=== PATIENT | male | born 1980 | race Hispanic/Latino ===

== ENCOUNTER 2021-09-18 15:51 | Emergency (ER) | payer OTHER, SELFPAY ==
--- NOTE | 2021-09-18 15:56 | ED.WOUNDLAC ---
HPI - Wound/Laceration General Chief Complaint: Wound/Laceration Stated Complaint: cut left 2nd finger Time Seen by Provider: 09/18/21 15:57 Source: patient and RN notes reviewed Mode of arrival: ambulatory Limitations: no limitations History of Present Illness HPI narrative: 41-year-old male presents to the [facility] with a laceration to the second finger left hand. 2 cm laceration tip with 2nd finger left hand. Bleeding controlled, unknown last Tdap Related Data Allergies Allergy/AdvReac Type Severity Reaction Status Date / Time No Known Allergies Allergy Unknown Verified 09/25/06 11:50 Review of Systems Review of Systems: All systems reviewed & are unremarkable except as noted in HPI and below Constitutional: Constitutional: Reports no additional constitutional complaints, Denies chills and Denies fever(s) Eyes: Eyes: Reports no additional eye complaints ENT: Reports system reviewed and no additional complaints, except as documented Cardiovascular: Cardiovascular: Reports no additional cardiovascular complaints Respiratory: Respiratory: Reports no additional respiratory complaints Gastrointestinal: Gastrointestinal: Reports no additional gastrointestinal complaints Musculoskeletal: Musculoskeletal: Reports no additional musculoskeletal complaints Integumentary/Breasts: Skin/Breast: Reports as per HPI Comments: Laceration, tip second left finger Neurologic: Reports system reviewed and no additional complaints, except as documented Psychiatric: Psychiatric: Reports no additional psychiatric complaints Allergic/Immunologic: Allergic/Immunologic: Reports no additional allergic/immunologic complaints PMFSH Past Medical History Medical History No significant medical problems Surgical History Surgical History (Updated 09/19/21 @ 20:15 by Annette Pavon) No significant past surgical history Comments At the time of my signature, I reviewed and agree with the nursing past medical, surgical, social, and family history. There is no relevant family history pertinent to the patient complaint. Exam Const: General: healthy appearing, no acute distress and alert Nutritional Appearance: well nourished Orientation/consciousness: patient oriented x3 Limitations: no limitations HENMT: Head: normal to inspection Eyes: Conjunctivae: conjunctivae normal Pupils: Equal, round and reactive pupils present Neck: Neck: normal visual inspection Chest: Chest palpation & inspection: normal inspection of the chest Resp: Effort & Inspection: normal respiratory effort Auscultation: clear to auscultation bilaterally Cardio: Rate: regular rate Rhythm: regular rhythm Back/Spine/Pelvis: Back: no CVA tenderness Skin: General skin exam: normal color Wounds: wounds noted left size (2 cm) Other: Laceration Neuro: General: patient oriented x3, moves all extremities, no meningeal signs and no focal motor deficits Speech: normal speech Gait exam (Neuro): Normal gait present Extrem: General: normal to inspection Psych: Appearance: grossly normal and well kempt Mental Status: mental status grossly normal Affect: normal affect Attitude: cooperative Thought content: Yes Normal thought content present Course Course Emergency Course: Discharge instructions reviewed with patient, as well as provided in writing per nursing staff. The instructions also include specific and strict return/GO TO THE ER as well as f/u information. All questions have been answered, and the patient deny any further questions with discharge and discharge plan. Vital Signs Vital signs: Vital Signs Temperature 98.4 F 09/18/21 16:00 Pulse Rate 98 09/18/21 16:00 Respiratory Rate 16 09/18/21 16:00 Blood Pressure 138/93 H 09/18/21 16:00 Pulse Oximetry 98 09/18/21 16:00 Temperature 98.4 F 09/18/21 16:00 Pulse Rate 98 09/18/21 16:00 Respiratory Rate 16 09/18/21 16:00 Blood
[2021-09-18 16:00] VITALS: BP 138/93; PULSE 98; RESP 16; TEMP 36.9; O2SAT 98
[2021-09-18] MEDS: TETANUS,DIPHTHERIA,AC PERTUSSIS ADULT (0.5 ML) BOOSTRIX IM (16:08)
== END 2021-09-18 16:30 | disposition home or self-care (01) ==
PROVIDERS: Emergency Provider Nurse Practitioner
DX: S61.211A Laceration without foreign body of left index finger without damage to nail, initial encounter (principal); X58.XXXA Exposure to other specified factors, initial encounter; Z23 Encounter for immunization
CPT/HCPCS: 12001; 90471; 90715; 99212; G0463

== ENCOUNTER 2024-03-12 14:59 | Emergency (ER) | payer OTHER, SELFPAY ==
[2024-03-12] VITALS (12 sets, daily range): BP systolic 137–161; BP diastolic 71–91; PULSE 96–111; RESP 16–31; TEMP 38.3; O2SAT 94–98
--- NOTE | ~2024-03-12 | CT_ITS ---
EXAMINATION: CT abdomen pelvis w con DATE: 03/12/2024 17:20 INDICATION: Right lower quadrant abdominal pain. TECHNIQUE: Computed tomography (CT) of the abdomen and pelvis was performed with 100 mL Omnipaque 350 intravenous contrast. Automated exposure control and iterative reconstruction technique were employe d. The dose-length product was 991.35 mGy-cm. COMPARISON: CT abdomen and pelvis 06/07/19 FINDINGS: The visualized portions of the lung bases demonstrate mild atelectasis. No pleural effusion . The heart size is normal. No pericardial effusion. The liver, gallbladder, spleen, pancreas, adrena l glands, and kidneys are normal. There are no dilated loops of bowel. The appendix is normal. The pr ostate is mildly enlarged. There is mild thoracic and lumbar spondylosis. IMPRESSION: 1. No etiology for the patient's symptoms. Reviewed, dictated and finalized at location E.
[2024-03-12] MEDS: ACETAMINOPHEN 500 MG TABLET 1000 MG PO (16:34)
[2024-03-12] MEDS: HYDROmorphone HCL INJ (*CRX) 1 MG/ML SYR IV PUSH (16:34)
[2024-03-12] MEDS: ONDANSETRON INJ 4 MG/2 ML VIAL IV PUSH (16:34)
--- NOTE | 2024-03-12 16:44 | ED.FEVER ---
HPI - Fever General Chief Complaint: Fever Stated Complaint: fever, body aches, abd pain Time Seen by Provider: 03/12/24 15:50 History of Present Illness HPI Narrative: 43-year-old male presenting to the emergency department for evaluation of periumbilical abdominal pain that started yesterday. Patient does report associated fevers and chills. Patient states he had a fever at home of 103. Upon arrival emergency department patient's temperature was 100.9?. Patient denies any significant past medical history and denies any prior history of abdominal surgeries. Patient denies any diarrhea or constipation or associated nausea or vomiting. Patient denies any associated cough or shortness of breath. Patient denies any urinary symptoms. Related Data Allergies Allergy/AdvReac Type Severity Reaction Status Date / Time No Known Allergies Allergy Unknown Verified 09/25/06 11:50 Review of Systems Review of Systems: All systems reviewed & are unremarkable except as noted in HPI and below PMFSH Past Medical History Medical History No significant medical problems Surgical History Surgical History (Updated 09/19/21 @ 20:15 by Annette Pavon, ANIMAL TREATMENT INVESTIGATOR) No significant past surgical history Exam Narrative: APPEARANCE: Well appearing, no pain, no distress, well-nourished. HEAD: normocephalic, atraumatic. EYES: PERRLA/EOMI, conjunctivae clear. NOSE: Normal no drainage EARS:TMS clear with good light reflex. THROAT: Pharynx clear, no exudate. NECK: Supple. No adenopathy, no masses. RESPIRATORY: Airway patent, respirations nonlabored. Clear to auscultation bilaterally, no rales, rhonchi, wheezing. CARDIOVASCULAR: Regular rate and rhythm without murmurs rubs or gallops. ABDOMINAL: Right lower quadrant tenderness to palpation MUSCULOSKELETAL: Moves all extremities. Strength/ROM intact, No edema, No calf tenderness. NEURO: Alert. Cranial nerves II through XII intact. Grossly intact SKIN: Warm, dry. Normal Color Course Vital Signs Vital signs: Vital Signs Temperature 100.9 F H 03/12/24 15:07 Pulse Rate 111 H 03/12/24 15:07 Respiratory Rate 18 03/12/24 15:07 Blood Pressure 161/88 H 03/12/24 15:07 Pulse Oximetry 98 03/12/24 15:07 Oxygen Delivery Room Air 03/12/24 15:07 Temperature 100.9 F H 03/12/24 15:07 Pulse Rate 96 03/12/24 18:32 Respiratory Rate 22 H 03/12/24 18:32 Blood Pressure 141/81 H 03/12/24 18:32 Pulse Oximetry 95 03/12/24 18:32 Oxygen Delivery Room Air 03/12/24 15:07 MDM - Fever MDM Narrative Medical decision making narrative: 43-year-old male presenting emergency department for evaluation of periumbilical pain and right lower quadrant tenderness to palpation. Patient had low-grade fever here in the ED and was treated with workup Tylenol along with IV fluids and IV Dilaudid. Patient did feel improved with treatment on re-evaluation patient has no complaints. Patient was afebrile but does have a leukocytosis of 13.7 a stable hemoglobin. No acute abnormalities on the patient's CMP. CT scan showed no acute abnormalities to explain the patient's symptoms. Differential Diagnosis Differential diagnosis: Likely cellulitis, gastroenteritis and viral infection Lab Data Attestation: I reviewed the patient's lab results. 03/12/24 16:46 03/12/24 16:46 Labs: Lab Results 03/12/24 03/12/24 Range/Units 16:46 17:55 WBC 13.7 H (4.5-10.0) K/mm3 RBC 4.77 (4.6-6.20) M/mm3 Hgb 14.8 (14.0-18.0) g/dL Hct 43.4 (42.0-52.0) % MCV 91.0 (80-100) fl MCH 31.0 (26-34) pg MCHC 34.1 (32-36) g/dl RDW 12.4 (11.5-14.5) % Plt Count 187 (150-375) k/mm3 MPV 9.2 (7.4-10.4) fl Immature Gran % (Auto) 0.3 (0-0.5) % Neut % (Auto) 87.3 H (45.5-73.1) % Lymph % (Auto) 6.0 L (18.3-44.2) % [place] % (Auto) 6.2 (2.6-8.5) % Eos % (Auto) 0.1 (0-4.4) % Baso % (Auto) 0.1 L
[2024-03-12 16:56] LABS: Basophils Percent Auto 0.1 % (0.2-1.2); Eosinophils Percent Auto 0.1 % (0-4.4); Hematocrit 43.4 % (42.0-52.0); Hemoglobin 14.8 g/dL (14.0-18.0); Immature Granulocyte Absolute 0.04 K/mm3 (0.00-0.031); Immature Granulocyte Percent A 0.3 % (0-0.5); Lymphocytes Absolute Auto 0.82 K/mm3 (0.9-3.2); Mean Corpuscular HGB Conc 34.1 g/dl (32-36); Mean Platelet Volume 9.2 fl (7.4-10.4); Monocytes Absolute Auto 0.9 K/mm3 (0.1-0.6); Monocytes Percent Auto 6.2 % (2.6-8.5); Neutrophils Absolute Auto 11.9 K/mm3 (1.3-6.7); Neutrophils Percent Auto 87.3 % (45.5-73.1); Platelet Count Result 187 k/mm3 (150-375); Red Blood Count 4.77 M/mm3 (4.6-6.20); Red Cell Distribution Width 12.4 % (11.5-14.5); White Blood Count 13.7 K/mm3 (4.5-10.0)
[2024-03-12 17:06] LABS: Alanine Aminotransferase 25 U/L (6-50); Albumin Level 4.9 g/dL (3.5-5.1); Alkaline Phosphatase 95 U/L (38-126); Anion Gap 9 mmol/L (4-12); Aspartate Amino Transferase 21 U/L (17-59); Bilirubin,Total 1.3 mg/dL (0.2-1.3); Blood Urea Nitrogen 10 mg/dL (9-20); Calcium 9.1 mg/dL (8.4-10.2); Carbon Dioxide 23 mmol/L (22-30); Chloride 104 mmol/L (98-107); Estimated CRCL calculation 107 ml/min; Estimated Glomerular Filt Rate > 60; Glucose 114 mg/dL (65-110); Lactic Acid Reflex 1.2 mmol/L (0.7-2.0); Lipase 51 U/L (23-300); Potassium 3.9 mmol/L (3.4-5.0); Sodium 136 mmol/L (137-145)
[2024-03-12 17:07] LABS: INR 1.1; Prothrombin Time 14.3 Seconds (11.1-14.7)
[2024-03-12 17:08] LABS: Partial Thromboplastin Time 27.5 Seconds (22.3-36.8)
[2024-03-12 18:35] LABS: Appearance Urine Clear (Clear); Bacteria Urine None Seen /hpf; Bilirubin Urine Negative (Negative); Blood Urine Negative (Negative); Color Urine Yellow (Yellow); Glucose Urine UA Negative (Negative); Ketones Urine Trace mg/dL (Negative); Leukocyte Esterase Ur Trace LEU/UL (Negative); Nitrate Urine Negative (Negative); Non Pathogenic Casts 0-2; Protein Urine 1+ mg/dL (Negative); RBC Urine 0-2 /hpf (0-2); Squamous Epithelial Cell Urine None Seen /hpf (Few); WBC Urine 21-50 /hpf (0-3); pH Urine 7.5 (5.0-9.0)
[2024-03-12 18:39] LABS: Specific Grav Ur 1.055 (1.001-1.035)
[2024-03-12 18:40] LABS: Add Urine Microscopic? YES
== END 2024-03-12 19:00 | disposition home or self-care (01) ==
PROVIDERS: Emergency Provider Emergency Medicine
DX: R10.9 Unspecified abdominal pain (principal); R50.9 Fever, unspecified
CPT/HCPCS: 36415; 74177; 80053; 81001; 83605; 83690; 85025; 85610; 85730; 87077; 87086; 87088; 87186; 96374; 96375; 99284; A9270; J1170; J2405; Q9967